=== PATIENT | female | born 1950 ===

== ENCOUNTER 2017-09-02 08:15 | Day surgery (SDC) | payer OTHER | END 2017-09-02 13:15 | disposition home or self-care (01) | LOC: AMB-ENDOS 08:15 | DX: K57.30 Diverticulosis of large intestine without perforation or abscess without bleeding (principal); K64.1 Second degree hemorrhoids; Z86.010 Personal history of colon polyps ==

== ENCOUNTER 2019-08-01 06:35 | Day surgery (SDC) | payer OTHER ==
[~2019-08-01 06:35] MED LIST: DICY20TA; LOSARTAN-HCTZ1 EACH PO; PROTONIX40 MG PO; PROZAC40 MG PO; SIMVASTATIN5 MG PO; SYNTHROID75 MCG PO; ZANTAC150 M3
== END 2019-08-01 14:07 | disposition home or self-care (01) ==
LOC: CIR.AMB 06:35 → ADM 10:45 → CIR.AMB 14:07
DX: L98.0 Pyogenic granuloma (principal); K64.8 Other hemorrhoids